=== PATIENT | male | born 1960 | race Caucasian/White ===

== ENCOUNTER 2022-03-18 18:26 | Emergency (ER) | payer OTHER, SELFPAY ==
--- NOTE | ~2022-03-18 | XR_ITS ---
EXAM: XR femur LT min 2V HISTORY: screw to leg, removed, r/o FB COMPARISON: None available FINDINGS: Normal mineralization. No fracture or dislocation. No lytic or blastic lesion. Mild left h ip osteoarthritis. Greater trochanter enthesopathy. Moderate left knee osteoarthritis. No erosion or periosteal change. Soft tissues within normal limits. IMPRESSION: No acute osseous finding. No radiopaque foreign body. Reviewed, dictated and finalized at location [facility].
[2022-03-18 18:46] VITALS: BP 155/98; PULSE 101; RESP 18; TEMP 37.1; O2SAT 96
[2022-03-18 20:57] VITALS: BP 168/85; PULSE 86; TEMP 36.7; O2SAT 96
--- NOTE | 2022-03-18 21:08 | ED.WOUNDLAC ---
HPI - Wound/Laceration General Chief Complaint: Wound/Laceration <DAMIEN Gottlieb Last Filed: 03/19/22 04:00> Stated Complaint: screw to leg <DAMIEN Gottlieb Last Filed: 03/19/22 04:00> Time Seen by Provider: 03/18/22 20:56 <DAMIEN Gottlieb Last Filed: 03/19/22 04:00> Source: patient <DAMIEN Gottlieb Last Filed: 03/19/22 04:00> Mode of arrival: ambulatory <DAMIEN Gottlieb Last Filed: 03/19/22 04:00> Limitations: no limitations <DAMIEN Gottlieb Filed: 03/19/22 04:00> History of Present Illness HPI narrative: Patient is a 61-year-old male who presents the ED with report of puncture wound to his L posterior leg. He reports he was working outside when he backed up into a piece of wood and sustained a puncture wound from a drywall nail into his left posterior leg just above his knee joint. He was able to pull the nail out at home but stated the bleeding squirted out and he became concerned there was an arterial bleed, thus prompting his presentation to the ED. Patient did wash the puncture wound prior to arrival. No active bleeding upon my evaluation. No other injuries. He has been ambulatory since the accident. Tetanus status is unknown. <DAMIEN Gottlieb Last Filed: 03/19/22 04:00> Related Data Allergies/Adverse Reactions: Allergies Allergy/AdvReac Type Severity Reaction Status Date / Time No Known Allergies Allergy Mild Unverified 04/19/09 13:32 <DAMIEN Gottlieb Last Filed: 03/19/22 04:00> Review of Systems Review of Systems: CONSTITUTIONAL: Denies fever. SKIN: Reports puncture wound to L posterior thigh. Denies rash or itching. MUSCULOSKELETAL: Denies joint pain. <DAMIEN Gottlieb Last Filed: 03/19/22 04:00> All systems reviewed & are unremarkable except as noted in HPI and below <DAMIEN Gottlieb Last Filed: 03/19/22 04:00> [facility] Past Medical History Medical History: Medical History (Updated 03/19/22 @ 03:54 by Lizeth Vasquez PA-C) Hypertension <Lizeth Vasquez PA-C - Last Filed: 03/19/22 04:00> Surgical History Surgical History: Surgical History (Updated 03/19/22 @ 03:54 by Lizeth Vasquez PA-C) History of adenoidectomy History of back surgery Hx of appendectomy <Lizeth Vasquez PA-C - Last Filed: 03/19/22 04:00> Social History Social History: Social History (Updated 03/19/22 @ 03:54 by Lizeth Vasquez PA-C) Smoking status: Never smoker <Lizeth Vasquez PA-C - Last Filed: 03/19/22 04:00> Exam Narrative: GENERAL: Well appearing, well-nourished, non-toxic, in no acute distress. HEAD: Normocephalic, atraumatic. NECK: Supple. No adenopathy, no masses. RESPIRATORY: Airway patent, respirations nonlabored. CARDIOVASCULAR: Regular rate and rhythm without murmurs, rubs, or gallops. Pedal pulses 2+ and equal bilaterally. MUSCULOSKELETAL: Moves all extremities. Strength/ROM intact without gross deformities. Puncture wound just above posterior popliteal region on left leg, no active bleeding at this time. Mild ecchymosis forming around puncture wound. SKIN: Warm, dry, normal color. No rashes. NEURO: A&O X3. Speech clear. Cranial nerves II-XII grossly intact. Steady gait. No ataxic movements. PSYCHIATRIC: Appropriate mood and affect. Normal interaction. <Lizeth Vasquez PA-C - Last Filed: 03/19/22 04:00> Course MELANGEUR OPERATOR/PA Physician Supervision For this patient encounter, I reviewed the MELANGEUR OPERATOR or PA documentation, treatment plan, and medical decision making <Ryne Qureshi MD - Last Filed: 03/19/22 07:02> Vital Signs Vital signs: Vital Signs Temperature 98.8 F 03/18/22 18:46 Pulse Rate 101 H 03/18/22 18:46 Respiratory Rate 18 03/18/22 18:46 Blood Pressure 155/98 H 03/18/22 18:46 Pulse Oximetry 96 03/18/22 18:46 Temperature 98.0 F 03/18/22 20:57 Pulse Rate 72 03/18/22 22:18 Respiratory Rate 16 03/18/22 22:18 Blood Pressure
[2022-03-18] MEDS: CEPHALEXIN 500 MG CAPSULE PO (21:57)
[2022-03-18] MEDS: TETANUS,DIPHTHERIA,AC PERTUSSIS ADULT (0.5 ML) BOOSTRIX IM (21:57)
[2022-03-18] MEDS: ceFAZolin SODIUM 1 GM VIAL IM (22:04)
[2022-03-18 22:18] VITALS: BP 160/80; PULSE 72; RESP 16; O2SAT 98
== END 2022-03-18 22:22 | disposition home or self-care (01) ==
LOC: ANHED 21:33
PROVIDERS: Emergency Provider Emergency Medicine
DX: S71.132A Puncture wound without foreign body, left thigh, initial encounter (principal); Z23 Encounter for immunization; I10 Essential (primary) hypertension; W45.0XXA Nail entering through skin, initial encounter
CPT/HCPCS: 73552; 90471; 90715; 96372; 99283; A9270; J0690

== ENCOUNTER 2022-06-07 17:18 | Emergency (ER) | payer OTHER, SELFPAY ==
[2022-06-07 17:21] VITALS: BP 154/94; PULSE 109; RESP 20; TEMP 36.9; O2SAT 97
--- NOTE | 2022-06-07 20:34 | ED.URI ---
HPI - URI/Sore Throat General Chief Complaint: Upper Respiratory Infection Stated Complaint: SORE THROAT,CHEST CONGESTION,COUGH Time Seen by Provider: 06/07/22 20:06 History of Present Illness HPI Narrative: Patient is a 61-year-old male complaining of a sore throat, cough, productive yellowish sputum and fever that started 3 days ago. Patient states that he went to an urgent care today, had his throat swab and was negative for strep. Patient denies any chest pain, shortness of breath, abdominal pain, nausea, vomiting or diarrhea. Patient refusing to be tested for COVID or get swabbed again for strep. Related Data Allergies Allergy/AdvReac Type Severity Reaction Status Date / Time No Known Allergies Allergy Mild Unverified 04/19/09 13:32 Review of Systems Review of Systems: See HPI All systems reviewed & are unremarkable except as noted in HPI and below PMFSH Past Medical History Medical History Hypertension Surgical History Surgical History History of adenoidectomy History of back surgery Hx of appendectomy Social History Social History Smoking status: Never smoker Exam Const: General: cooperative, healthy appearing, comfortable, no acute distress, well developed, alert and awake; No confusion Orientation/consciousness: oriented to person, oriented to place, oriented to time, patient oriented x3 and No confusion Limitations: no limitations HENMT: Head: normal to inspection, normocephalic and atraumatic Ears: hearing grossly normal bilaterally, TM normal on the right and TM normal on the left General nose exam: Normal external nose present, Normal nares present and No nasal discharge present Face and sinus: normal facial exam Mouth: Yes Normal oral and palatal mucosa present, Yes lip normal and Yes tongue normal Throat: uvula midline Other: Patent airway, erythematous posterior oropharyngeal area, negative for any significant swelling, negative for exudates Eyes: General: appearance normal, both eyes and all related structures Pupils: Equal, round and reactive pupils present EOM: EOMs intact bilaterally Neck: Neck: normal visual inspection, full ROM, no lymphadenopathy and no meningeal signs Chest: Chest palpation & inspection: normal inspection of the chest Resp: Effort & Inspection: normal respiratory effort, able to speak in complete sentences, no respiratory distress and not tachypneic Auscultation: clear to auscultation bilaterally, no crackles, no rales, no rhonchi and no wheezes Cardio: Rate: regular rate Rhythm: regular rhythm GI: Inspection: normal to inspection GI Palp: No abdominal tenderness, Yes Soft to palpation, No Tenderness to palpation present (GI), No Guarding due to palpation present (GI), No Rigid due to palpation and No Rebound tenderness present Auscultation: normal bowel sounds : General: Yes no CVA tenderness Back/Spine/Pelvis: Back: no CVA tenderness Skin: General skin exam: normal color, no rashes or lesions noted, elasticity normal and turgor normal Neuro: General: oriented to person, oriented to place, oriented to time, patient oriented x3, tone normal, moves all extremities, Normal light touch and pain sensation, no meningeal signs, no focal motor deficits, CN's II-XI intact bilaterally and No confusion Cranial nerves: Yes Equal, round and reactive pupils present Speech: No Abnormal speech present Sensory Exam: No Sensory deficit (Neuro) Extrem: General: normal to inspection, full ROM and capillary refill normal Psych: Appearance: grossly normal and well kempt Mental Status: mental status grossly normal Speech and movement: Normal speech and movement present Affect: normal affect Attitude: cooperative Thought process: Normal thought process present Thought content: Yes Normal thought content presen
--- NOTE | 2022-06-07 20:46 | PC.NURSE ---
pt refused covid swab.
== END 2022-06-07 21:35 | disposition home or self-care (01) ==
PROVIDERS: Emergency Provider Emergency Medicine
DX: J06.9 Acute upper respiratory infection, unspecified (principal); J02.9 Acute pharyngitis, unspecified; I10 Essential (primary) hypertension
CPT/HCPCS: 96372; 99283; J1100